=== PATIENT | female | born 1945 | race Caucasian/White ===

== ENCOUNTER 2016-05-24 05:36 | Day surgery (SDC) | payer BC ==
[2016-05-24] MEDS ORDERED: LACTATED RINGERS 1,000 ML ONE (05:45)
[2016-05-24] MEDS ORDERED: IV START KIT ONE (05:45)
[2016-05-24] MEDS ORDERED: LIDOCAINE 1% 2 ML VIAL ID PRN (05:49)
[2016-05-24] MEDS ORDERED: CEFAZOLIN SODIUM 2 GRAM DUPLEX 2 G in Premix (D5W) 50 ml 1 EACH IV PRN (05:49)
[2016-05-24] MEDS ORDERED: LACTATED RINGERS 1,000 ML IV SCH ×2 (05:49→07:45)
[2016-05-24] MEDS ORDERED: MIDAZOLAM HCL 1 MG/ML 2ML VIAL ONE ×2 (06:49→07:13)
[2016-05-24] MEDS ORDERED: FENTANYL 0 ML ONE (06:49)
[2016-05-24] MEDS ORDERED: CEFAZOLIN SODIUM 2 GRAM PREMIX 100 ML IV ONE (06:49)
[2016-05-24] MEDS ORDERED: SULFANILAMIDE 15% CREAM 20 APPLIC/120 G TUBE ONE ×2 (07:04→08:15)
[2016-05-24] MEDS ORDERED: PROPOFOL 20 ML IV ONE (07:10)
[2016-05-24] MEDS ORDERED: MORPHINE SULFATE (DURAMORPH) 1 MG/ML 10ML AMP ONE (07:10)
[2016-05-24] MEDS ORDERED: EPHEDRINE SULFATE 50 MG/ML 1ML VIAL IV PRN (07:37)
[2016-05-24] MEDS ORDERED: ATROPINE SULFATE 0.4 MG/1 ML VIAL IV PRN (07:37)
[2016-05-24] MEDS ORDERED: MEPERIDINE 25 MG/ML SYRINGE IV PRN (07:37)
[2016-05-24] MEDS ORDERED: ONDANSETRON 4 MG/2ML 2 ML VIAL IV PRN ×2 (07:37→09:15)
[2016-05-24] MEDS ORDERED: FENTANYL 100 MCG/2 ML VIAL IV PRN (07:37)
[2016-05-24] MEDS ORDERED: HYDROMORPHONE HCL 1 MG/ML SYRINGE IV PRN ×2 (07:37)
[2016-05-24] MEDS ORDERED: PROMETHAZINE HCL 25 MG/ML VIAL IM PRN (07:37)
[2016-05-24] MEDS ORDERED: NALOXONE HCL 0.4 MG/ML VIAL IV PRN ×2 (07:37)
[2016-05-24] MEDS ORDERED: DEXAMETHASONE SOD PHOS 4 MG/1 ML VIAL ONE (07:46)
[2016-05-24] MEDS ORDERED: ONDANSETRON 4 MG/2ML 2 ML VIAL ONE (07:46)
--- NOTE | 2016-05-24 09:04 | OP ---
Emma Molina DATE OF PROCEDURE: 05/24/2016 SURGEON: Teddy Mean M.D. RENAL DIALYSIS TECHNICIAN SURGEON: Sarah Martinez PREOPERATIVE DIAGNOSIS: Cystocele and rectocele. POSTOPERATIVE DIAGNOSIS: Cystocele and rectocele. OPERATION: Anterior and posterior colporrhaphy. ANESTHESIA: Spinal. TECHNICAL PROCEDURE: After induction of satisfactory spinal anesthesia the patient was placed in the supine lithotomy position and prepped and draped in the usual fashion. Retractors were placed vaginally and the vaginal cuff was grasped between two Allis forceps and a piece of mucosa was excised transversely using the Dawson scissors. The anterior mucosa was grasped between two Allis forceps and undermined in the midline and incised in the midline to within 3 cm of the distal urethral meatus. Mucosa was from the underlying tissues using sharp and blunt dissection. The pubovesical fascia was then plicated under the bladder using interrupted vertical mattress sutures of 0 Vicryl. The excess vaginal mucosa was trimmed away and the mucosa closed with interrupted simple stitches of 3-0 Vicryl. Attention was then turned to the posterior colporrhaphy. A transverse piece of mucosa was excised from the vaginal fourchette. The posterior mucosa was then grasped between two Allis forceps and the vaginal mucosa undermined in the midline and excised in the midline to the level of the vaginal cuff. The mucosa was from the underlying tissues using sharp and blunt dissection. The levator muscles were then plicated across the rectum using interrupted horizontal mattress sutures of 0 Vicryl. The excess vaginal mucosa was trimmed away. The vaginal mucosa was then closed with interrupted simple stitches of 2-0 Vicryl. The perineal body was reconstructed using a simple stitch of 0 Vicryl. The superficial perineal tissues were then closed using a continuous stitch of 3-0 Vicryl and the same suture was used to closed the perineal mucosa in a subcuticular fashion. A vaginal packing was placed and the procedure terminated. The patient tolerated the procedure well and left the operating room awake and in good condition. There were no complications. Instrument, needle, and sponge counts were correct. Estimated blood loss was 100 mL. There was no blood replacement. There were no specimens removed. JOB: [id number]
[2016-05-24] MEDS ORDERED: DIPHENHYDRAMINE HCL 50 MG/1 ML VIAL IV PRN (09:15)
[2016-05-24] MEDS ORDERED: MENTHOL/CETYLPYRD 1 EACH LOZENGE PO PRN (09:15)
[2016-05-24] MEDS ORDERED: DOCUSATE SODIUM 100 MG CAPSULE PO PRN (09:15)
[2016-05-24] MEDS ORDERED: MAG HYDROX/AL HYDROX/SIMETH 30 ML UDCUP PO PRN (09:15)
[2016-05-24] MEDS ORDERED: BLISTEX LIPSTICK 1 EACH TP PRN (09:15)
[2016-05-24] MEDS ORDERED: ACETAMINOPHEN 325 MG TABLET PO PRN (09:15)
[2016-05-24] MEDS ORDERED: MAGNESIUM HYDROXIDE/AL HYDROX 30 ML UDCUP PO PRN (09:15)
[2016-05-24 10:50] VITALS: BMI 31.6
[2016-05-24] MEDS ORDERED: PUMP TUBING ONE (10:54)
[2016-05-24] MEDS: PANTOPRAZOLE 40 MG TABLET DR PO SCH ×2 (11:05→21:15)
[2016-05-24] MEDS: LISINOPRIL 10 MG TABLET PO SCH (11:05)
[2016-05-24] MEDS: KETOROLAC TROMETHAMINE 15 MG/ML VIAL IV SCH ×3 (11:05→21:33)
[2016-05-24] MEDS: D5 1/4NS with 20 mEq KCL 1,000 ML IV SCH ×3 (11:06→18:10)
[2016-05-24] MEDS ORDERED: OXYCODONE HCL 5 MG TABLET ONE (14:59)
[2016-05-25] MEDS: OXYCODONE HCL 5 MG TABLET PO PRN ×2 (00:25→07:49)
[2016-05-25] MEDS: D5 1/4NS with 20 mEq KCL 1,000 ML IV SCH ×2 (02:51→11:06)
[2016-05-25] MEDS: KETOROLAC TROMETHAMINE 15 MG/ML VIAL IV SCH ×2 (05:32→11:01)
[2016-05-25 05:56] LABS: HEMATOCRIT 33.1 % (37.0-47.0); HEMOGLOBIN 10.6 gm/l (12.0-16.0)
[2016-05-25] MEDS ORDERED: OXYCODONE HCL 5 MG TABLET PO PRN (08:33)
[2016-05-25] MEDS: PANTOPRAZOLE 40 MG TABLET DR PO SCH (09:31)
[2016-05-25] MEDS: LISINOPRIL 10 MG TABLET PO SCH (09:31)
--- NOTE | 2016-05-25 10:23 | PDOC5 ---
Hospital Course: ADMIT DATE: 05/24/2016 DISCHARGE DATE: 05/25/2016 ADMISSION DIAGNOSES: cystocele & rectocele PROCEDURES: Anterior and posterior colporrhaphy HISTORY OF PRESENT ILLNESS: 71 year old presenting with a rectocele and cystocele HOSPITAL COURSE: The patient on the day of admission was taken to surgery where she underwent an anterior and posterior colporrhaphy. Her postoperative course was uncomplicated. By day of discharge the patient is ambulating, eating, voiding, and passing flatus without difficulty. Pain is controlled. - Objective General: Afebrile, No Acute Distress Abdomen: Soft, Non-Distended (Tolerating diet.) Extremities: Full ROM, No Edema Skin: Normal Color, Warm, Dry Neurological: Grossly Intact Psych/Mental Status: Normal Affect, Normal Mood - Discharge Plan Condition: Good Disposition: Home Additional Instructions: Maintain pelvic rest. Report if you have heavy bleeding, worsening pain, or a temperature over 100. Prescriptions: Docusate Sodium [COLACE 100 MG CAPSULE (SHF)] 100 mg PO BID #60 cap Follow-Up: Teddy Mena MD [Staff Physician] - In 2 weeks
[2016-05-25 13:43] VITALS: BP 154/71
== END 2016-05-25 14:15 | disposition home or self-care (01) ==
LOC: MS 05:36 → SDC 05:36
PROVIDERS: ATTEND Obstetrics & Gynecology
PROC: 0JQC0ZZ Repair Pelvic Region Subcutaneous Tissue and Fascia, Open Approach (ICD-10-PCS; principal; 2016-05-25)
DX: N81.6 Rectocele (principal); N81.10 Cystocele, unspecified; I10 Essential (primary) hypertension; M19.90 Unspecified osteoarthritis, unspecified site; Z87.891 Personal history of nicotine dependence
CPT/HCPCS: 85014; 85018; 36415; 57260; A9270 ×10; J1100; J2274; J1885 ×5; J2250 ×2; J2405; J7120; J0690